=== PATIENT | male | born 1955 | race Caucasian/White ===

== ENCOUNTER → 2024-05-15 11:40 | Outpatient (REF) | payer MEDICARE, OTHER, SELFPAY | LOC: RAD 11:40 | PROVIDERS: ATTENDING PHYSICIAN Family Medicine | DX: S29.9XXA Unspecified injury of thorax, initial encounter (principal) | CPT/HCPCS: 71101 ==

== ENCOUNTER 2024-12-17 06:18 | Day surgery (SDC) | payer OTHER, SELFPAY | END 2024-12-17 10:41 | disposition home or self-care (01) | LOC: GI 06:18 | PROVIDERS: ATTENDING PHYSICIAN Internal Medicine Gastroenterology | DX: Z12.11 Encounter for screening for malignant neoplasm of colon (principal); K64.8 Other hemorrhoids; K57.30 Diverticulosis of large intestine without perforation or abscess without bleeding; D12.0 Benign neoplasm of cecum; D12.2 Benign neoplasm of ascending colon; D12.3 Benign neoplasm of transverse colon; K63.5 Polyp of colon; Z86.0100 Personal history of colon polyps, unspecified | CPT/HCPCS: 45385; 88305 ==